=== PATIENT | female | born 2005 | race Two or more races ===

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

== ENCOUNTER 2025-03-25 11:18 | Emergency (ER) | payer OTHER, SELFPAY ==
--- NOTE | ~2025-03-25 | CT_ITS ---
EXAMINATION: CT FACIAL BONES WITH CONTRAST CLINICAL INFORMATION: Right facial swelling/pain. Question dental abscess COMPARISON: None available. TECHNIQUE: 1.5 mm thin axial and reformatted 1.5 mm thick sagittal and coronal images of facial bones were obtained. DLP 235 mGy/cm. This CT examination was performed using dose optimization techniques as appropriate, variously including the following: *Automated exposure control *Adjustment of mA and/or kV according to patient size (this includes techniques or standardized protocols for targeted exams where dose is matched to indication/reason for exam; i.e. extremities or head) *Use of iterative reconstruction technique FINDINGS: Visualized intracranial brain parenchyma appears unremarkable. The lateral ventricles are symmetrical in size and configuration without enlargement. Visualized bilateral parotid, submandibular glands and thyroid lobes are symmetrical. The nasopharyngeal, nasal cavity and partially visualized laryngeal airway appears widely patent. Soft tissues anterior neck, parapharyngeal and prevertebral space is normal. The oral cavity slightly limited evaluation secondary to dental amalgam artifact. There is a right periapical cyst first bicuspid right maxilla without any soft tissue swelling There is diffuse mucoperiosteal thickening right maxillary sinus. Rest of the paranasal sinuses and mastoid air cells are well-aerated. There is no buckle or alveolar is space abscess. No obvious mass effect or edema in the base of the tongue however limited there is mild right maxillofacial soft tissue swelling Normal symmetrical patent carotid arteries and jugular veins. CT/CT facial bones w IV con IMPRESSION: Right maxillofacial soft tissue swelling without any buccal or alveolar abscess. The oral cavity is limited in evaluation secondary to dental amalgam artifact. Mild inflammatory changes right maxillary sinus. Electronically signed by: Fernando Ng MD 03/25/2025 02:02 PM EDT
[2025-03-25 11:20] VITALS: BP 141/84; PULSE 80; RESP 16; TEMP 36.8; O2SAT 97; BMI 19.9
--- NOTE | 2025-03-25 11:22 | ED_ITS ---
HPI - General Adult General Chief complaint: Dental/Oral Stated complaint: Severe Dental Infection Time Seen by Provider: 03/25/25 12:17 Source: patient, RN notes reviewed and old records reviewed Mode of arrival: ambulatory History of Present Illness ED Provider: Kathe Sanders PA-C HPI narrative: 19-year-old female with no significant past medical history presenting to the ED complaining of right upper dental pain and facial swelling since yesterday. Admits to chronic broken tooth. Denies recent dental procedures or seeing dentist. Denies fever, chills, ear pain, difficulty or inability to swallow, drainage from area. Related Data Previous Rx's ?Medication ?Instructions ?Recorded nirmatrelvir 300 mg (150 mg See Rx Instructions PO .COMPLEX 10/14/23 x2)-ritonavir 100 mg tablet,dose #30 ea pack (Paxlovid) amoxicillin 875 mg-potassium 1 tab PO BID 7 days #14 tabs 03/25/25 clavulanate 125 mg tablet Allergies Allergy/AdvReac Type Severity Reaction Status Date / Time ibuprofen [From Advil] Allergy Rash Verified 03/25/25 11:24 Review of Systems 2 Review of Systems: Yes all other systems are reviewed and are negative Constitutional: Constitutional: Reports as per [facility] Past Medical History Attestation statement: The following information was validated with the patient. Source: old records reviewed Social History Social History Alcohol intake: never Smoked in Last 30 Days: Yes Use of substances other than those prescribed or required for medical reasons: No Advance Directives: No Advance Directives Information Provided: Yes Physical Exam ED Vital Signs: Vital Signs - 24 hr 03/25/25 11:20 03/25/25 12:06 03/25/25 13:42 Temperature 98.2 F Pulse Rate 80 88 88 Respiratory Rate 16 16 16 Blood Pressure 141/84 H 118/69 138/68 Pulse Oximetry 97 100 100 Oxygen Delivery Method Room Air Room Air Room Air 03/25/25 15:05 Temperature 98.7 F Pulse Rate 88 Respiratory Rate 16 Blood Pressure 138/68 Pulse Oximetry 100 Oxygen Delivery Method Room Air BMI result Body Mass Index 19.9 Const General: cooperative, healthy appearing and no acute distress Orientation/consciousness: patient oriented x3 Limitations: no limitations HENMT Other: + right facial/maxillary swelling appreciated Right 2nd premolar absent. Mild surrounding gingival swelling and erythema. No focal fluctuance or induration. Tender to palpation. Head: Yes normal to inspection and Yes atraumatic Ears: hearing grossly normal bilaterally General nose exam: Normal external nose present Mouth: Normal oral and palatal mucosa present and no drooling Teeth and gingiva: caries and fair dentition Throat: Yes posterior oropharynx normal, Yes tonsils normal, Yes uvula midline, No peritonsillar mass, No uvula laterally displaced and No uvular edema Eyes General: appearance normal, both eyes and all related structures EOM: EOMs intact bilaterally Neck Neck: Yes normal visual inspection and Yes no meningeal signs Resp Effort & Inspection: normal respiratory effort and no respiratory distress Cardio Rate: regular rate Skin Rashes: no rashes Wounds: no wounds Neuro General: patient oriented x3, tone normal and no meningeal signs Cranial nerves: Yes CN's II-XII intact bilaterally Gait exam (Neuro): Normal gait present Extrem General: Yes normal to inspection Course Course Course Narrative: This is a rapid medical exam performed by Yesi Steen NP: Additional HPI, ROS, PE not included below will be deferred to primary provider. Patient is a 19-year-old female presenting with complaint of right upper jaw pain and swelling to right side of face x 2 days. [place] hot last night. Denies drainage. Has appointment with dentist on . Significant right maxillary swelling. Plan: labs -1440--leukocytosis of 13. CRP minimally elevated. Labs otherwise reassuring CT facial bones w IV con IMPRESSION: Right maxillofacial soft tissue swelling without any buccal or alveolar abscess. The oral cavity is limited in evaluation secondary to dental amalgam artifact. Mild inflammatory changes right maxillary sinus. > plan to discharge home with p.o. antibiotics and dentistry follow-up. States she has follow-up on the . Discussed with patient worrisome signs and symptoms and strict return precautions, and when to return to the emergency department. They verbalized understanding and feel safe for discharge at this time. Medications Administered Discontinued Medications Generic Name Dose Route Start Last Admin Trade Name Freq PRN Reason Stop Dose Admin Acetaminophen 1,000 mg in 100 mls @ 400 mls/hr 03/25/25 12:23 03/25/25 13:42 Ofirmev IV 03/25/25 12:37 Infused ONCE ONE Infusion Iohexol 100 ml 05/14/25 13:36 03/25/25 13:41 Iohexol 350 Mg/Ml 100 Ml Infus..Btl IV 03/25/25 13:37 85 ml ONCE ONE Administration Medical Decision Making Medical Decision Making [facility] Narrative: 19-year-old female with no significant past medical history presenting to the ED complaining of right upper dental pain and facial swelling since yesterday. On exam vital signs stable, NAD, nontoxic appearing physical exam as noted above with right-sided appreciable facial swelling and broken/absent tooth to right premolar. Gingival tenderness without focal fluctuance or induration. Concern for dental abscess vs edema. No evidence of SAFETY ADMINISTRATOR/retropharyngeal abscess. Lower suspicion for osteomyelitis Plan: Labs, CT, IVF, pain control Please refer to course for remaining clinical decision making, interpretation of labs/imaging results, and discussions with consultants and/or family members. Differential Diagnosis Differential Diagnoses: The differential diagnosis associated with the presentation includes As above Admission/Observation Consideration of admission/observation: Escalation of care including admission/observation considered Lab Data [facility] Lab Attestation statement: I reviewed the patient's lab results. 03/25/25 11:35 03/25/25 11:35 Labs: Lab Results 03/25/25 Range/Units 11:35 WBC 13.0 H (4.8-10.8) X10*3/uL RBC 4.30 (4.20-5.50) X10*6/uL Hgb 12.0 (12.0-16.0) g/dl Hct 36.4 L (37.0-47.0) % MCV 84.7 (80.0-98.0) fL MCH 27.9 (27.0-33.0) pg MCHC 33.0 (31.0-35.0) g/dl RDW 14.0 (11.0-16.0) % Plt Count 341 (160-400) X10*3/uL MPV 9.0 L (9.4-12.3) fL Immature Gran % (Auto) 0.4 (0.0-0.4) % Neut % (Auto) 61.2 (45-73) % Lymph % (Auto) 28.2 (20-40) % [place] % (Auto) 8.1 (2-11) % Eos % (Auto) 1.6 (0-4) % Baso % (Auto) 0.5 (0-2) % Lymph # (Auto) 3.7 (1.2-4.9) X10*3/uL [place] # (Auto) 1.1 (0.1-1.2) X10*3/uL Eos # (Auto) 0.2 (0.0-0.4) X10*3/uL Baso # (Auto) 0.1 (0.0-0.2) X10*3/uL Abs Immat Gran (auto) 0.05 H (0.00-0.03) X10*3/uL Absolute Neuts (auto) 8.0 (2.0-8.3) x10*3/uL Absolute Nucleated RBC 0.000 (0.0-0.012) X10*3/uL Nucleated RBC % (auto) 0.0 (0.0-0.2) /100WBC ESR 11 (0-20) MM/HR Sodium 140 (135-145) mmol/L Potassium 3.6 (3.3-5.1) mmol/L Chloride 109 H (96-108) mmol/L Carbon Dioxide 23 (22-29) mmol/L Anion Gap 12 (12-20) BUN 8 L (9-16) mg/dL Creatinine 0.63 (0.5-1.4) mg/dL Estim Creat Clear Calc 97.1 Estimated GFR > 60 Random Glucose 95 (60-115) mg/dL Calcium 8.9 (8.4-10.2) mg/dL Total Bilirubin 0.5 (0.0-1.0) mg/dL AST 18 (5-31) U/L ALT 16 (0-31) U/L Alkaline Phosphatase 59 (39-117) U/L C-Reactive Protein 0.75 H (< or = 0.50) mg/dL Total Protein 7.2 (6.5-8.0) g/dL Albumin 4.4 (3.5-5.0) g/dL Beta HCG, Quant < 2 mIU/mL Independent Interpretation I performed an independent interpretation of an: CT Scan Radiology Impression Discussion of test interpretation with radiology: I have reviewed the radiologist's reading. External Record Review External record reviewed: Inpatient record, Office record, Outpatient record, Prior outpatient labs, Prior outpatient radiology, Primary care record and Outside ED record Tests considered The following testing was considered but not selected: As above Prescription Management I considered prescription management with: Pain Medication and Antibiotic Chronic Conditions Patient?s care impacted by: Other Social Determinants Patient?s care significantly limited by Social Determinants of Health including: Other Social Determinant of Health Discharge Plan Discharge Clinical Impression: Facial swelling Patient Disposition: Home, Self-Care Additional Instructions: Your blood work is reassuring Your CAT scan shows right maxillofacial soft tissue swelling. No abscess Augmentin as an antibiotic please take as prescribed until completion In addition take Tylenol for pain Ice area If swelling persists or worsens, you have difficulty or inability to swallow, or fevers return to the emergency department Try [facility] they are accepting new patients Prescriptions: New amoxicillin-pot clavulanate 875-125 mg tablet 1 tab PO BID 7 Days Qty: 14 0RF No Action Paxlovid 300 mg (150 mg x 2)-100 mg tablets,dose pack See Rx Instructions .ROUTE .COMPLEX Qty: 30 0RF Rx Instructions: take TWO 150 mg tablets of nirmatrelvir with ONE 100 mg tablet of ritonavir twice daily for 5 days Referrals: Aaron Vance [Dentist] - Don Kaplan DMD [Dentist] - Interventions: ED Discharge Assessment Last Done: 03/25/25 15:05 Discharge Date/Time: 03/25/25 15:06 Print Language: Korean
[2025-03-25 11:38] LABS: MANUAL DIFF FLAG NO
[2025-03-25 11:42] LABS: Basophils Absolute Auto 0.1 X10*3/uL (0.0-0.2); Basophils Percent Auto 0.5 % (0-2); Eosinophils Absolute Auto 0.2 X10*3/uL (0.0-0.4); Eosinophils Percent Auto 1.6 % (0-4); Hematocrit 36.4 % (37.0-47.0); Imm Gran Abs Auto 0.05 X10*3/uL (0.00-0.03); Imm Gran Pct Auto 0.4 % (0.0-0.4); Lymphocytes Absolute Auto 3.7 X10*3/uL (1.2-4.9); Lymphocytes Percent Auto 28.2 % (20-40); Mean Corpuscular Hemoglobin 27.9 pg (27.0-33.0); Mean Corpuscular Volume 84.7 fL (80.0-98.0); Monocytes Absolute Auto 1.1 X10*3/uL (0.1-1.2); Monocytes Percent Auto 8.1 % (2-11); Neutrophils Percent Auto 61.2 % (45-73); Platelet Count 341 X10*3/uL (160-400)
[2025-03-25 11:58] LABS: Alanine Aminotransferase 16 U/L (0-31); Albumin Level 4.4 g/dL (3.5-5.0); Alkaline Phosphatase 59 U/L (39-117); Anion Gap 12 (12-20); Aspartate Amino Transferase 18 U/L (5-31); Bilirubin Total 0.5 mg/dL (0.0-1.0); Blood Urea Nitrogen 8 mg/dL (9-16); C Reactive Protein 0.75 mg/dL (< or = 0.50); Calcium 8.9 mg/dL (8.4-10.2); Carbon Dioxide 23 mmol/L (22-29); Chloride 109 mmol/L (96-108); Creatinine Clr Calc Pharmacy 97.1; Estimated Glomerular Filt Rate > 60; Glucose Random 95 mg/dL (60-115); Potassium 3.6 mmol/L (3.3-5.1); Sodium 140 mmol/L (135-145); Total Protein 7.2 g/dL (6.5-8.0)
[2025-03-25 12:06] VITALS: BP 118/69; PULSE 88; RESP 16; O2SAT 100
[2025-03-25 12:23] LABS: Erythrocyte Sedimentation Rate 11 MM/HR (0-20)
[2025-03-25] MEDS: Acetaminophen 1,000 MG/100 ML PIGGYBACK 400 MG IV (12:39)
[2025-03-25 13:03] LABS: HCG Quantitative < 2 mIU/mL
--- OUTSIDE RECORDS SUMMARY | 2025-03-25 13:18 | XMS_ITS | Patient Health Record ---
Author Organization [facility] Address [address] [id number] Care Team Providers Care Industrial Controller Name Role Phone [facility]A AWAD Unavailable [phone] Allergies No Known Allergies Results Component Value Reference Range Notes HCV Antibody-[id number] Reviewed date:06/13/2024 09:41:28 AM Interpretation:Non-reactive Performing Lab:[facility] [place], [employer], [address], [employer] Phone - [phone], Director - [facility] Notes/Report: Hep C Virus Ab Non Reactive Non Reactive HCV antibody alone does not differentiate between previously resolved infection and active infection. Equivocal and Reactive HCV antibody results should be followed up with an HCV RNA test to support the diagnosis of active HCV infection. Trich vag by ANGIE-[id number] Reviewed date:06/20/2024 12:59:25 PM Interpretation:Negative Performing Lab:[facility] [place], [address] [facility], Phone - [phone], Director - [place] Notes/Report: Trich vag by ANGIE Negative Negative Chlamydia/GC Amplification-[id number] Reviewed date:06/18/2024 09:18:11 AM Interpretation:Negative Performing Lab:[facility] [place], [address] [facility], Phone - [phone], Director - [place] Notes/Report: Chlamydia trachomatis, ANGIE Negative Negative Neisseria gonorrhoeae, ANGIE Negative Negative HIV Ab/p24 Ag with Reflex-[id number] Reviewed date:06/13/2024 09:41:37 AM Interpretation:Non-reactive Performing Lab:[facility] [place], [address], [address], [employer] Phone - [phone], Director - [facility] Notes/Report: HIV Ab/p24 Ag Screen Non Reactive Non Reactive HIV-1/HIV-2 antibodies and HIV-1 p24 antigen were NOT detected. There is no laboratory evidence of HIV infection. HIV Negative T pallidum Screening [place] -[id number] Reviewed date:06/13/2024 09:41:47 AM Interpretation:Non-reactive Performing Lab:[facility] [place], [address] [facility], [place], Phone - [phone], Director - [place] Notes/Report: T pallidum Antibodies Non Reactive Non Reactive Hepatitis B Surf Ab Quant-[id number] Reviewed date:06/13/2024 09:41:20 AM Interpretation:Immune Performing Lab:[facility] [place], [address], [address], [employer] Phone - [phone], Director - [place] Notes/Report: Hepatitis B Surf Ab Quant 76.2 Immunity>10 mIU /mL Status of Immunity Anti-HBs Level Inconsistent with Immunity 0.0 - 10.0 Consistent with Immunity >10.0 HBsAg Screen-[id number] Reviewed date:06/13/2024 09:40:52 AM Interpretation:Negative Performing Lab:[facility] [place], [address], [address], [employer] Phone - [phone], Director - [facility] Notes/Report: HBsAg Screen Negative Negative Reason For Referral No Information Social History Sex Assigned At : Social History Observation Description Sex Assigned At Female Vital Signs Blood pressure diastolic 54 mm Hg 06/11/2024 BMI Percentile 32.88 % 06/11/2024 Height 4'11 in 06/11/2024 Blood pressure systolic 112 mm Hg 06/11/2024 Weight 100.9 lbs 06/11/2024 BMI 20.38 kg/m2 06/11/2024 Encounters Encounter Location Date Provider Diagnosis [address] [id number] 06/11/2024 [facility] Encounter for scre ening for infections with a predominantly sexual mode of transmission Z11.3 ; Counseling, unspecified Z71.9 ; Other problems related to lifestyle Z72.89 ; HIV Screening Z11.4 and Encounter for screening for other viral diseases Z11.59 Assessments Encounter Date Diagnosis (ICD Code) Assessment Notes Treatment Notes Treatment Clinical Notes Section Notes 06/11/2024 Encounter for screening for infections with a predominantly sexual mode of transmission (ICD-10 - Z11.3) Discussed STI risks, screenings that are available through [facility] and safe sex. For Hep B and C screening today. Clt aware of lab processing times and how to view results on portal and how positive results will be communicated Need 2 out of 3 Sections from A-C Section A) Problems (only need one from below) One acute or uncomplicated illness/injury Section B) Data (at least one of the following categories in this section) Category 1: (Choose 2 of the following): Order unique tests Section C) Risk Document low risk of morbidity/mortal ity 06/11/2024 Counseling, unspecified (ICD-10 - Z71.9) Need 2 out of 3 Sections from A-C Section A) Problems (only need one from below) One acute or uncomplicated illness/injury Section B) Data (at least one of the following categories in this section) Category 1: (Choose 2 of the following): Order unique tests Section C) Risk Document low risk of morbidity/mortal ity 06/11/2024 Other problems related to lifestyle (ICD-10 - Z72.89) Need 2 out of 3 Sections from A-C Section A) Problems (only need one from below) One acute or uncomplicated illness/injury Section B) Data (at least one of the following categories in this section) Category 1: (Choose 2 of the following): Order unique tests Section C) Risk Document low risk of morbidity/mortal ity 06/11/2024 HIV Screening (ICD-10 - Z11.4) Need 2 out of 3 Sections from A-C Section A) Problems (only need one from below) One acute or uncomplicated illness/injury Section B) Data (at least one of the following categories in this section) Category 1: (Choose 2 of the following): Order unique tests Section C) Risk Document low risk of morbidity/mortal ity 06/11/2024 Encounter for screening for other viral diseases (ICD-10 - Z11.59) Need 2 out of 3 Sections from A-C Section A) Problems (only need one from below) One acute or uncomplicated illness/injury Section B) Data (at least one of the following categories in this section) Category 1: (Choose 2 of the following): Order unique tests Section C) Risk Document low risk of morbidity/mortal ity Plan Of Treatment No Information Insurance Providers Payer Name Payer Address Payer Phone Subscriber Number Group Number Insured Name Patient Relationship to Insured Coverage Start Date Coverage End Date [place] CLAIMS [address] [place] [id number] Carlee Ponce Self - patient is the insured
[2025-03-25] MEDS: iohexoL 350 MG/ML 100 ML INFUS..BTL IV (13:41)
[2025-03-25 13:42] VITALS: BP 138/68; PULSE 88; RESP 16; O2SAT 100
--- NOTE | 2025-03-25 14:01 | PC.NURSE ---
Pt A&O X4 States pain has improved but face is swollen . Right side of face appears slightly swollen. NAD no other complaints.
--- NOTE | 2025-03-25 14:41 | PC.NURSE ---
Pt states pain med helped some using warm pack for comfort states Ice pack hurt. Pt in NAD no other complaints.
[2025-03-25 15:05] VITALS: BP 138/68; PULSE 88; RESP 16; TEMP 37.1; O2SAT 100
== END 2025-03-25 15:06 | disposition home or self-care (01) ==
PROVIDERS: Physician Assistant; Registered Nurse Emergency; Emergency Provider Emergency Medicine
DX: R22.0 Localized swelling, mass and lump, head (principal); R10.2 Pelvic and perineal pain; K03.81 Cracked tooth; Z79.899 Other long term (current) drug therapy
CPT/HCPCS: 36415; 70487; 80053; 84702; 85025; 85652; 86140; 96365; 99284; 99285; J0131; Q9967

== ENCOUNTER → 2025-03-25 12:23 | Outpatient (BNV) | payer OTHER, SELFPAY | PROVIDERS: Emergency Provider Emergency Medicine; Visit Provider Radiology Diagnostic Radiology | DX: R22.0 Localized swelling, mass and lump, head (principal) | CPT/HCPCS: 70487 ==

== ENCOUNTER 2025-04-08 20:37 | Emergency (ER) | payer OTHER, SELFPAY ==
--- NOTE | ~2025-04-08 | XR_ITS ---
CLINICAL HISTORY: cough blood tinged sputum 2 view chest x-ray Comparison: None Findings: Normal size heart. No consolidation, pleural effusion or pneumothorax. No acute fracture. IMPRESSION: 1. No acute findings. This document has been electronically signed by: Belén Elizondo MD on 04/08/2025 21:09:55
[2025-04-08 20:39] VITALS: BP 119/72; PULSE 98; RESP 18; TEMP 36.9; O2SAT 97; BMI 20.4
--- NOTE | 2025-04-08 20:40 | ED_ITS ---
HPI - General Adult General Chief complaint: Upper Respiratory Symptoms Stated complaint: ?Strep Throat Time Seen by Provider: 04/08/25 21:37 Related Data Previous Rx's ?Medication ?Instructions ?Recorded nirmatrelvir 300 mg (150 mg See Rx Instructions PO .COMPLEX 10/14/23 x2)-ritonavir 100 mg tablet,dose #30 ea pack (Paxlovid) amoxicillin 875 mg-potassium 1 tab PO BID 7 days #14 tabs 03/25/25 clavulanate 125 mg tablet acetaminophen 500 mg tablet 500 mg PO Q6H PRN fever or pain 04/08/25 #20 tabs Allergies Allergy/AdvReac Type Severity Reaction Status Date / Time ibuprofen [From Advil] Allergy Rash Verified 04/08/25 20:42 [facility] Social History Social History Alcohol intake: never Advance Directives: No Advance Directives Information Provided: No Physical Exam ED Vital Signs: Vital Signs - 24 hr 04/08/25 20:39 04/08/25 22:05 Temperature 98.4 F 98.4 F Pulse Rate 98 98 Respiratory Rate 18 18 Blood Pressure 119/72 119/72 Pulse Oximetry 97 97 Oxygen Delivery Method Room Air Room Air BMI result Body Mass Index 20.4 Course Course Course Narrative: 04/08/252039 [facility] Butt This is a Rapid Medical Examination (RME) performed by Amparo Tyler PA-C in triage. Full HPI, ROS, assessment and treatment plan per primary provider in the Main ED. Hx: 19 yo F here w/ sore throat, cough w/ blood tinged sputum, body aches, generalized weakness since this morning. known sick contacts. Plan: viral/strep swabs, cxr Reevaluation(s) Reevaluation #1: this is a duplicate note. please see dr. riley's completed note regarding patient's visit on 04/08/25. Medications Administered Discontinued Medications Generic Name Dose Route Start Last Admin Trade Name Freq PRN Reason Stop Dose Admin Dexamethasone 4 mg 04/08/25 21:50 04/08/25 22:03 Dexamethasone 4 Mg Tablet PO 04/08/25 21:51 4 mg ONCE ONE Administration Lidocaine HCl 15 ml 04/08/25 21:50 04/08/25 22:04 Lidocaine Hcl Viscous 2 % 15 Ml Solution MUCOUS MEM 04/08/25 21:51 15 ml ONCE ONE Administration Medical Decision Making Lab Data Labs: Lab Results 04/08/25 Range/Units 20:52 Influenza Type A (PCR) NEGATIVE (Negative) Influenza Type B (PCR) NEGATIVE (Negative) RSV RNA Qual (PCR) NEGATIVE (Negative) SARS-CoV-2 RNA (RT-PCR) NEGATIVE (Negative) S. pyogenes GrpA PATIENCE Negative (Negative) Discharge Plan Discharge Clinical Impression: Acute viral bronchitis Patient Disposition: Home, Self-Care Instructions: Acute Bronchitis (ED) Additional Instructions: Please follow-up with your primary care physician tomorrow. If you have any worsening or new symptoms, please return to the emergency room or call 911 Prescriptions: New acetaminophen 500 mg tablet 500 mg PO Q6H PRN (Reason: fever or pain) Qty: 20 0RF No Action amoxicillin-pot clavulanate 875-125 mg tablet 1 tab PO BID 7 Days Qty: 14 0RF Paxlovid 300 mg (150 mg x 2)-100 mg tablets,dose pack See Rx Instructions .ROUTE .COMPLEX Qty: 30 0RF Rx Instructions: take TWO 150 mg tablets of nirmatrelvir with ONE 100 mg tablet of ritonavir twice daily for 5 days Stand Alone Forms: Work/School Release Interventions: ED Discharge Assessment Last Done: 04/08/25 22:05 Discharge Date/Time: 04/08/25 22:06 Print Language: Frisian
[2025-04-08 21:05] LABS: IDNOW Serial# 58CA691E; Strep A Nucleic Acid Negative (Negative)
[2025-04-08 21:33] LABS: Influenza A PCR NEGATIVE (Negative); Influenza B PCR NEGATIVE (Negative); Resp Syncy Virus RNA Qual PCR NEGATIVE (Negative); SARS COV2 PCR INHOUSE NEGATIVE (Negative)
--- NOTE | 2025-04-08 21:50 | ED_ITS ---
HPI - URI/Sore Throat General Chief Complaint: Upper Respiratory Symptoms Stated Complaint: ?Strep Throat Time Seen by Provider: 04/08/25 21:37 Source: patient Mode of arrival: ambulatory Limitations: no limitations History of Present Illness ED Provider: Dr. Tania Friedman HPI Narrative: Patient comes to the emergency room complaining of 1 day of cough, sore throat, nasal congestion and body aches. Patient states that she took ibuprofen with no relief. Denies fever or chills. Related Data Previous Rx's ?Medication ?Instructions ?Recorded nirmatrelvir 300 mg (150 mg See Rx Instructions PO .COMPLEX 10/14/23 x2)-ritonavir 100 mg tablet,dose #30 ea pack (Paxlovid) amoxicillin 875 mg-potassium 1 tab PO BID 7 days #14 tabs 03/25/25 clavulanate 125 mg tablet acetaminophen 500 mg tablet 500 mg PO Q6H PRN fever or pain 04/08/25 #20 tabs Allergies Allergy/AdvReac Type Severity Reaction Status Date / Time ibuprofen [From Advil] Allergy Rash Verified 04/08/25 20:42 Review of Systems Review of Systems: Constitutional : No Weight loss, No Fever, No Chills, No Night Sweats, complaining of fatigue and generalized malaise ENT/Mouth : No Hearing loss, No Ear Pain, complaining of Nasal Congestion, No Sinus Pain, No Hoarseness, in a sore throat, No Rhinorrhea, No Swallowing Difficulty Eyes: No Eye Pain, No Swelling, No Redness, No Foreign Body, No Discharge, No Vision Changes Cardiovascular : No Chest Pain, No SOB, No Dyspnea on Exertion, No Orthopnea, No Edema, No Palpitations Respiratory : Complaining of productive cough, No Wheezing, No Smoke Exposure, No Dyspnea Gastrointestinal : No Nausea, No Vomiting, No Diarrhea, No Constipation, No abdominal Pain, No Hematochezia, No Melena Genitourinary : no irregular bleeding, No Dysuria, No Urinary Frequency, No Hematuria, No Urinary Incontinence, No Urgency, No Flank Pain, No Urinary Flow Changes, No Hesitancy Musculoskeletal : No joint pain, No Myalgias, No Joint Swelling Skin : No Skin Lesions, No rash Neuro : No Weakness, No Numbness, No Paresthesias, No Loss of Consciousness, No Dizziness, No Headache Psych : No Anxiety/Panic, No Depression, No SI/HI/AH/VH, No Social Issues, Heme/Lymph: No Bruising, No Bleeding,No Lymphadenopathy Endocrine : No Polyuria, No Polydipsia, No Temperature Intolerance [facility] Social History Social History Alcohol intake: never Advance Directives: No Advance Directives Information Provided: No Physical Exam Vital Signs: Vital Signs: Last Vital Signs Temp 98.4 F 04/08/25 20:39 Pulse 98 04/08/25 20:39 Resp 18 04/08/25 20:39 BP 119/72 04/08/25 20:39 Pulse Ox 97 04/08/25 20:39 O2 Del Method Room Air 04/08/25 20:39 BMI result Body Mass Index 20.4 Const: Other: Appearance: Alert. Oriented X3. No acute distress. Well-appearing Eyes: Pupils equal, round and reactive to light. ENT: Erythematous oropharynx Neck: Normal inspection. Neck supple. No lymph nodes noted. No crepitus CVS: Normal heart rate and rhythm. Pulses normal. Normal S1 and S2 Respiratory: No respiratory distress. Breath sounds normal. No Wheezing. No rales Abdomen: Soft and nontender. No rigidity. No distention. Skin: Skin warm and dry. Normal skin color. Normal skin turgor. Extremities: No lower extremity edema. No Lacerations. No Rash Neuro: Oriented X 3. No motor deficit. No sensory deficit. Moving all extremities. No slurred speech. CN 2 through 12 grossly intact Psych: calm, cooperative, normal affect Course Course Course Narrative: Patient complaining of URI symptoms, patient states that she has known exposures. Medical Decision Making Medical Decision Making [facility] Narrative: My interpretation of labs: Serology negative for influenza COVID RSV and strep Chest x-ray knee Vitals still Patient well-appearing, erythematous oropharynx Patient provided with p.o. Decadron and viscous lidocaine for symptomatic relief. Antibiotics are not indicated at this time Differential Diagnosis Differential Diagnoses: The differential diagnosis associated with the presentation includes (As above) Lab Data [facility] Lab Attestation statement: I reviewed the patient's lab results. Labs: Lab Results 04/08/25 Range/Units 20:52 Influenza Type A (PCR) NEGATIVE (Negative) Influenza Type B (PCR) NEGATIVE (Negative) RSV RNA Qual (PCR) NEGATIVE (Negative) SARS-CoV-2 RNA (RT-PCR) NEGATIVE (Negative) S. pyogenes GrpA PATIENCE Negative (Negative) Independent Interpretation I performed an independent interpretation of an: Plain X-Ray Radiology Impression Discussion of test interpretation with radiology: I have reviewed the radiologist's reading. Radiologist Impression: Normal size heart. No consolidation, pleural effusion or pneumothorax. No acute fracture. Discharge Plan Discharge Clinical Impression: Acute viral bronchitis Patient Disposition: Home, Self-Care Instructions: Acute Bronchitis (ED) Additional Instructions: Please follow-up with your primary care physician tomorrow. If you have any worsening or new symptoms, please return to the emergency room or call 911 Prescriptions: New acetaminophen 500 mg tablet 500 mg PO Q6H PRN (Reason: fever or pain) Qty: 20 0RF No Action amoxicillin-pot clavulanate 875-125 mg tablet 1 tab PO BID 7 Days Qty: 14 0RF Paxlovid 300 mg (150 mg x 2)-100 mg tablets,dose pack See Rx Instructions .ROUTE .COMPLEX Qty: 30 0RF Rx Instructions: take TWO 150 mg tablets of nirmatrelvir with ONE 100 mg tablet of ritonavir twice daily for 5 days Stand Alone Forms: Work/School Release Print Language: Citizen Of [place]
[2025-04-08] MEDS: dexAMETHasone 4 MG TABLET PO (22:03)
[2025-04-08] MEDS: Lidocaine HCl Viscous 2 % 15 ML SOLUTION MUCOUS MEM (22:04)
[2025-04-08 22:05] VITALS: BP 119/72; PULSE 98; RESP 18; TEMP 36.9; O2SAT 97
== END 2025-04-08 22:06 | disposition home or self-care (01) ==
PROVIDERS: Physician Assistant Medical; Emergency Provider Emergency Medicine
DX: J20.8 Acute bronchitis due to other specified organisms (principal); R05.9 Cough, unspecified; J02.9 Acute pharyngitis, unspecified; Z03.818 Encounter for observation for suspected exposure to other biological agents ruled out
CPT/HCPCS: 0241U; 71046; 87651; 99282; 99283; J8540

== ENCOUNTER → 2025-04-08 20:40 | Outpatient (BNV) | payer OTHER, SELFPAY | PROVIDERS: Emergency Provider Emergency Medicine; Visit Provider Specialist | DX: R05.9 Cough, unspecified (principal); R04.2 Hemoptysis | CPT/HCPCS: 71046 ==

== ENCOUNTER 2025-11-09 20:17 | Emergency (ER) | payer OTHER, SELFPAY ==
[2025-11-09 20:20] VITALS: BP 120/56; PULSE 91; RESP 20; TEMP 36.2; O2SAT 96; BMI 23.0
[2025-11-09 20:49] LABS: MANUAL DIFF FLAG NO
[2025-11-09 20:50] LABS: Hematocrit 37.1 % (37.0-47.0); Hemoglobin 12.3 g/dl (12.0-16.0); Imm Gran Abs Auto 0.04 X10*3/uL (0.00-0.03); Imm Gran Pct Auto 0.3 % (0.0-0.4); Lymphocytes Absolute Auto 3.8 X10*3/uL (1.2-4.9); Mean Corpuscular HGB Conc 33.2 g/dl (31.0-35.0); Mean Corpuscular Hemoglobin 28.3 pg (27.0-33.0); Mean Corpuscular Volume 85.3 fL (80.0-98.0); NRBC Abs Auto 0.000 X10*3/uL (0.0-0.012); NRBC Pct Auto 0.0 /100WBC (0.0-0.2); Platelet Count 352 X10*3/uL (160-400); Red Blood Count 4.35 X10*6/uL (4.20-5.50); White Blood Count 13.1 X10*3/uL (4.8-10.8)
[2025-11-09 21:08] LABS: Alanine Aminotransferase 29 U/L (0-31); Albumin Level 4.7 g/dL (3.5-5.0); Alkaline Phosphatase 79 U/L (39-117); Anion Gap 15 (12-20); Aspartate Amino Transferase 23 U/L (5-31); Blood Urea Nitrogen 12 mg/dL (9-16); Calcium 9.1 mg/dL (8.4-10.2); Carbon Dioxide 23 mmol/L (22-29); Chloride 109 mmol/L (96-108); Creatinine Clr Calc Pharmacy 75.3; Estimated Glomerular Filt Rate > 60; Potassium 4.0 mmol/L (3.3-5.1); Sodium 143 mmol/L (135-145); Total Protein 7.4 g/dL (6.5-8.0)
--- OUTSIDE RECORDS SUMMARY | 2025-11-10 00:19 | XMS_ITS | Patient Health Record ---
Author Organization [facility] Address [address] [place] [address] Support Name Relationship Address Phone Carlee Ponce Guarantor Unknown [phone] Allergies No Known Allergies Reason For Referral No Information Social History Sex Assigned At : Social History Observation Description Sex Assigned At Female Social History HIV Risk Assessment Social Info Question Answer Notes Additional Questions Is an HIV Risk Assessment being c onducted? Yes Did you have a blood transfusion prior to 1985? No Do you have an unlicensed body piercing or tattoo? No Reproductive Life Plan: Social Info Question Answer Notes Reproductive Life Plan: Do you want to h ave children? Yes, I want to have children How long would you like to wait until you/your partner becomes ? 10 or more years How sure are you that you will be able to use your control method without any problems? Very sure Human Trafficking: Social Info Question Answer Notes Human Trafficking Experienced: No PrEP for HIV: Social Info Question Answer Notes PrEP for HIV Is the client intere sted in beginning/continuing PrEP for HIV? No Sexual History: Social Info Question Answer Notes Sexual History: Sexual History Reviewed: Partner s, Practices, Protection/Past STIs Currently sexually active? Yes Sexually active with: Men Number of male partners 1 Your sexual activities include: anal intercourse, oral intercourse, vaginal intercourse Do you use condoms? No Date of last unprotected intercourse: 06/07/2024 Number of partners in past 3 months: 1 Number of partners in past year: 1 Does your partner(s) currently have any STIs? No Counseling Provided: Social Info Question Answer Notes Counseling Provided Please indicate the length of time, in minutes, that counseling was provided. 5 Counseling Was Provided By: prabhu Drugs/Alcohol: Social Info Question Answer Notes Drug/Alcohol Use Do you or have you used drugs? Yes, c urrently By what route are you taking drugs? Please check all that apply: Smoking Which drug(s) do you smoke? Marijuana When did you last use? Do you want to quit drugs? No Do you or have you used alcohol? Yes, currently Sometimes on the weekends. Food Access: Social Info Question Answer Notes Food Access The Client's current access to food is Secure Food Access Housing Social Info Question Answer Notes Housing The client's current living situation is: stable housing Tobacco Use: Social Info Question Answer Notes Tobacco Use: Do you/have you used tobacco? Yes, currently Client uses tobacco with marijuana. Tobacco Smoking Status Current every day smoker Plan Of Treatment No Information Insurance Providers Payer Name Payer Address Payer Phone Subscriber Number Group Number Insured Name Patient Relationship to Insured Coverage Start Date Coverage End Date [place] [address] [place] [id number] Carlee Ponce Self - patient is the insured
== END 2025-11-10 00:38 | disposition left against medical advice (07) ==
LOC: HO.ED 11-10 00:16
PROVIDERS: Emergency Provider Emergency Medicine
DX: L05.91 Pilonidal cyst without abscess (principal); Z53.21 Procedure and treatment not carried out due to patient leaving prior to being seen by health care provider
CPT/HCPCS: 36415; 80053; 85025; 99281